=== PATIENT | female | born 1980 | race Hispanic/Latino ===

== ENCOUNTER 2018-07-06 16:34 | Emergency (ER) | payer OTHER ==
[~2018-07-06] VITALS: Ht 144.8 cm; Wt 54.4 kg
--- OUTSIDE RECORDS SUMMARY | 2018-07-06 16:37 | XMS REPORT ---
Author Author [facility] Address Unknown Phone Unavailable Care Team Providers Care Supervisor [employer] Name Role Phone Margaux SHAFER Unavailable Unavailable Problems This patient has no known problems. Allergies, Adverse Reactions, Alerts This patient has no known allergies or adverse reactions. Medications This patient has no known medications. Encounters Start Date/Time End Date/Time Encounter Type Admission Type Attending Clinicians Care Facility Care Department Encounter ID 2016-12-30 14:32:37 2016-12-30 14:32:37 Emergency [facility] [id number] Results Test Description Test Time Test Comments Text Results Atomic Results Result Comments CT ABDOMEN/PELVIS W 2018-03-12 18:56:00 [place] [address] Patient Name: BLANCA PIEDRA MR #: [id number] : 1980 Age/Sex: 37/F Req #: [id number] Adm Physician: Ordered by: KYRIE KAM NP Report #: [id number] Location: ER Room/Bed: Procedure: [id number] CT/CT ABDOMEN/PELVIS W Exam Date: Exam Time: REPORT STATUS: Signed CT Abdomen And Pelvis with Intravenous Contrast INDICATION: Rectal bleeding, lower abd pain TECHNIQUE: Thin collimation axial images obtained from the diaphragm to the level of the pubic symphysis following the uneventful administration of 100 cc of low osmolar, nonionic intravenous contrast. Dose reduction techniques used: Automated exposure control, adjustment of the mAs and/or kVp according to patient size, standardized low-dose protocol, and/or iterative reconstruction technique. RADIATION DOSE: Total DLP: 180.16 mGy*cm Estimated effective dose: (DLP x 0.015 x size factor) mSv CTDIvol has been r eviewed. It is below the limits set by the Radiation Protocol Committee (RPC). COMPARISON: None. ABDOMEN FINDINGS: Lung Bases: Clear. The visualized portions of the mediastinum are normal.. Liver: Decreased attenuation suggestive of steatosis. Lobulated low attenuating lesion in the right lobe measures 2.2 x 1.7 cm. Gallbladder: Present and contracted. No biliary ductal dilatation. Pancreas: Normal attenuation without mass or ductal dilatation. Spleen: Normal in size. No evidence of mass.. Adrenal Glands: No evidence for mass. Kidneys: Right: Normal enhancement. No soft tissue mass. No hydronephrosis. Left: Normal enhancement. No soft tissue mass. No hydronephrosis. Lymph Nodes: No enlarged abdominal or retroperitoneal lymph nodes. Aorta: Normal in diameter PELVIS FINDINGS: Bowel: Stomach: Distended with enteric contrast and appears normal. Small Bowel: Contains enteric contrast. No mural thickening or dilatation. Large Bowel: Diverticulosis of the right colon. Circumferential mural thickening and associated inflammation of at least a 12 cm segment of the descending colon. There is normal mucosal enhancement. The sigmoid colon is redundant. No significant burden of diverticulosis. Appendix: Normal appendix. Bladder: Well distended and is normal. No ureteral dilatation. The uterus is present and normal in morphology. No adnexal mass. No free fluid or fluid collection. Bones: Unremarkable for age. IMPRESSION: 1. Long segment mural thickening and inflam mation of the descending colon suggestive of colitis. 2. Diverticulosis coli without evidence of acute diverticulitis. Normal appendix. 3. No bowel obstruction. 4. Steatosis. Lobulated cyst or hemangioma in the right lobe. Signed by: Dr. Raymond Delatorre MD on 03/12/2018 7:02 PM Dictated By: RAYMOND DELATORRE MD 01 Transcribed By: MARCELO on 03/12/181901 COPY TO: KYRIE KAM NP
--- OUTSIDE RECORDS SUMMARY | 2018-07-06 16:37 | XMS REPORT ---
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 V72.31 Active Rosalia Wei MD Routine gynecological examination Ulcerative (chronic) enterocolitis per pt 556.0 Active Rosalia Wei MD Ulcerative (chronic) enterocolitis Chlamydia trachomatis 099.41 Active Rosalia Wei MD Nongonococcal urethritis [CARMEN] due to Chlamydia trachomatis BMI 25.0-25.9 Active Rosalia Wei MD Body Mass Index 25.0-25.9, adult Injectable contraceptive surveillance V25.49 Active Rosalia Wei MD Encounter for surveillance of other contraceptive method Injectable contraceptive surveillance V25.49 Active Rosalia Wei MD Encounter for surveillance of other contraceptive method Pelvic pain, right 789.09 Active Rosalia Wei MD Abdominal pain, other specified site; multiple sites Abdominal pain 789.00 Active Rosalia Wei MD Abdominal pain, unspecified site exam neg- upt neg-=if persistent Injectable contraceptive, initial prescription V25.02 Active Rosalia Wei MD Encounter for general counseling on initiation of other contraceptive measures Amenorrhea, secondary, r/o 626.0 Active Rosalia Wei MD Absence of menstruation Contraception counseling V25.09 Active Rosalia Wei MD Encounter for other general counseling and advice on contraceptive management Dysuria 788.1 Active Rosalia Wei MD Dysuria Hx of hematuria, microscopic since 2007 V13.09 Active Rosalia Wei MD Other personal history of disorders of urinary system Vaginitis and vulvovaginitis 616.10 Active Rosalia Wei MD Vaginitis and vulvovaginitis, unspecified Std screening ICD-V74.5 Inactive Rosalia Wei MD Vaginal odor ICD-623.8 Inactive Rosalia Wei MD Std screening V74.5 Resolved Rosalia Wei MD Screening examination for venereal disease Vaginal odor 623.8 Resolved Rosalia Wei MD Other specified noninflammatory disorders of vagina Medication List Medication Instructions Start Date Stop Date Generic Name NDC Status Provider Patient Instruction AZITHROMYCIN 500 MG ORAL TABLET 2 tablet By Mouth once AZITHROMYCIN 70002603603 Active Rosalia Wei MD Active METRONIDAZOLE 500 MG ORAL TABLET one tablet By Mouth Twice a Day for 7 days METRONIDAZOLE 79629707809 Tresa Wei MD Active METRONIDAZOLE 0.75 % VAGINAL GEL one applicatorful in vagina each night for 5 nights METRONIDAZOLE 25684272867 Tresa Wei MD Active PHENAZOPYRIDINE HCL 100 MG ORAL TABLET one tablet By Mouth Three Times a Day for urinary symptoms PHENAZOPYRIDINE HCL 86883827960 Tresa Wei MD Active DEPO-PROVERA 150 MG/ML INTRAMUSCULAR SUSPENSION IM q 3mo MEDROXYPROGESTERONE ACETATE 77471227436 Tresa Wei MD Active METRONIDAZOLE 0.75 % VAGINAL GEL one applicatorful in vagina for 5 nights METRONIDAZOLE 91286978594 Tresa Wei MD Active Vital Signs Date Name Value Unit Range Description blood pressure, diastolic 70 mm[Hg] BP white blood pressure, systolic 105 mm[Hg] BP sys height E&M 57 [in_us] Bdy height pulse rate E&M 63 /min Heart rate temperature E&M 98.1 [degF] Body temperature weight E&M 116 [lb_av] Weight Measured blood pressure, diastolic 71 mm[Hg] BP white blood pressure, systolic 113 mm[Hg] BP sys height E&M 57 [in_us] Bdy height pulse rate E&M 67 /min Heart rate temperature E&M 97.9 [degF] Body temperature weight E&M 119 [lb_av] Weight Measured blood pressure, diastolic 65 mm[Hg] BP white blood pressure, systolic 99 mm[Hg] BP sys height E&M 57 [in_us] Bdy height pulse rate E&M 76 /min Heart rate temperature E&M 98.5 [degF] Body temperature weight E&M 116 [lb_av] Weight Measured blood pressure, diastolic 69 mm[Hg] BP white blood pressure, systolic 102 mm[Hg] BP sys height E&M 57 [in_us] Bdy height pulse rate E&M 76 /min Heart rate temperature E&M 98.6 [degF] Body temperature weight E&M 113.13 [lb_av] Weight Measured blood pressure, diastolic 78 mm[Hg] BP white blood pressure, systolic 118 mm[Hg] BP sys height E&M 57 [in_us] Bdy height pulse rate E&M 78 /min Heart rate temperature E&M 98.5 [degF] Body temperature weight E&M 114 [lb_av] Weight Measured Diagnostic Results Date Name Value Unit Range Description Lab Report: CBC With Differential/Platelet, Comp. Metabolic Panel (14), ... - Chemistry thyroid stimulating hormone, serum 1.020 u[iU]/mL 0.450-4.500 Office Visit: Depo provera fup/STD test - Chemistry beta HCG, urine, semiquantitative negative Lab Report: CBC With Differential/Platelet, Comp. Metabolic Panel (14), ... - Chemistry very low density lipoproteins 21 mg/dL 5-40 hepatitis B surface antigen Negative Negative chloride, serum 104 mmol/L 96-106 urea nitrogen, blood 15 mg/dL 6-20 Office Visit: depo provera fup/ pelvic pain. dysuria/ hematuria - Urinalysis leukocyte esterase, urine, by dipstick negative Lab Report: CBC With Differential/Platelet, Comp. Metabolic Panel (14), ... - Hematology mean corpuscular hemoglobin concentration, RBC 33.4 G/DL % 31.5-35.7 erythrocyte (RBC) count 4.35 X10E6/UL 10*6/mm3 3.77-5.28 Office Visit: depo provera fup/ pelvic pain. dysuria/ hematuria - Urinalysis nitrite, urine, semiquantitative negative Lab Report: CBC With Differential/Platelet, Comp. Metabolic Panel (14), ... - Serology hepatitis C antibody, serum <0.1 0.0-0.9 Office Visit: depo provera fup/ pelvic pain. dysuria/ hematuria - Urinalysis urine color yellow Lab Report: CBC With Differential/Platelet, Comp. Metabolic Panel (14), ... - Chemistry Absolute Neutrophils 3.1 X10E3/UL 10*3/uL 1.4-7.0 Office Visit: depo provera fup/ pelvic pain. dysuria/ hematuria - Urinalysis bilirubin, urine negative Lab Report: CBC With Differential/Platelet, Comp. Metabolic Panel (14), ... - Chemistry LDL cholesterol, serum 92 mg/dL 0-99 urea nitrogen/creatinine ratio, serum 22 9-23 Lab Report: CBC With Differential/Platelet, Comp. Metabolic Panel (14), ... - Hematology mean corpuscular volume, RBC 92 fL 79-97 Lab Report: CBC With Differential/Platelet, Comp. Metabolic Panel (14), ... - Chemistry HDL cholesterol, serum 68 mg/dL >39 Lab Report: CBC With Differential/Platelet, Comp. Metabolic Panel (14), ... - Hematology monocytes as percent of blood leukocytes 9 % Not Estab. Lab Report: CBC With Differential/Platelet, Comp. Metabolic Panel (14), ... - Chemistry albumin/globulin ratio, serum 1.7 1.2-2.2 creatinine, serum 0.67 mg/dL 0.57-1.00 Lab Report: Vaginitis/Vaginosis, DNA Probe - Urinalysis trichomonas vaginalis, urine Negative Negative Lab Report: CBC With Differential/Platelet, Comp. Metabolic Panel (14), ... - Chemistry cholesterol, serum 181 mg/dL 518-716 7390/02/20 bilirubin, serum, total 0.8 mg/dL 0.0-1.2 Lab Report: CBC With Differential/Platelet, Comp. Metabolic Panel (14), ... - Hematology Eosinophil Absolute Count 0.0 X10E3/UL 10*3/uL 0.0-0.4 Lab Report: Ct, Ng, Trich vag by ALEJO - Lab chlamydia DNA probe Negative Negative Office Visit: depo provera fup/ pelvic pain. dysuria/ hematuria - Urinalysis appearance, urine clear blood in urine (hemoglobin) by dipstick 3+ Lab Report: CBC With Differential/Platelet, Comp. Metabolic Panel (14), ... - Chemistry aspartate aminotransferase (SGOT), serum 16 U/L 0-40 Lab Report: CBC With Differential/Platelet, Comp. Metabolic Panel (14), ... - Hematology red blood cell distribution width 12.6 % 12.3-15.4 leukocyte count, blood 4.6 X10E3/UL 10*3/mm3 3.4-10.8 Lab Report: CBC With Differential/Platelet, Comp. Metabolic Panel (14), ... - Chemistry potassium, serum 4.2 mmol/L 3.5-5.2 albumin, serum 4.5 g/dL 3.5-5.5 immature granulocytes, percentage of total cells, blood 0 % Not Estab. Lab Report: CBC With Differential/Platelet, Comp. Metabolic Panel (14), ... - Hematology lymphocyte count, blood, automated 1.1 X10E3/UL 10*3/mm3 0.7-3.1 Lab Report: Ct, Ng, Trich vag by ALEJO - Microbiology Neisseria gonorrhoeae DNA probe Negative Negative Lab Report: CBC With Differential/Platelet, Comp. Metabolic Panel (14), ... - Hematology hematocrit, blood 40.1 % 34.0-46.6 Lab Report: Urine Culture, Routine, Result - Urinalysis urine culture No growth Lab Report: CBC With Differential/Platelet, Comp. Metabolic Panel (14), ... - Chemistry sodium, serum 143 mmol/L 134-144 Lab Report: CBC With Differential/Platelet, Comp. Metabolic Panel (14), ... - Hematology neutrophils as percent of blood leukocytes 68 % Not Estab. basophils as percent of blood leukocytes 0 % Not Estab. Office Visit: depo provera fup/ pelvic pain. dysuria/ hematuria - Urinalysis protein, urine, semiquantitative (dipstick) negative Lab Report: CBC With Differential/Platelet, Comp. Metabolic Panel (14), ... - Serology rapid plasma reagin antibody, serum Non Reactive Non Reactive Lab Report: CBC With Differential/Platelet, Comp. Metabolic Panel (14), ... - Chemistry carbon dioxide, venous blood 24 mmol/L 20-29 triglyceride, serum, fasting 103 mg/dL 0-149 calcium, serum 9.5 mg/dL 8.7-10.2 alanine aminotransferase (SGPT), serum 32 U/L 0-32 Lab Report: CBC With Differential/Platelet, Comp. Metabolic Panel (14), ... - Hematology mean corpuscular hemoglobin, RBC 30.8 pg 26.6-33.0 Lab Report: CBC With Differential/Platelet, Comp. Metabolic Panel (14), ... - Chemistry protein, total, serum 7.2 g/dL 6.0-8.5 alkaline phosphatase, serum 70 U/L 39-117 Lab Report: CBC With Differential/Platelet, Comp. Metabolic Panel (14), ... - Hematology hemoglobin, blood 13.4 g/dL 11.1-15.9 lymphocytes as percent of blood leukocytes 23 % Not Estab. Lab Report: CBC With Differential/Platelet, Comp. Metabolic Panel (14), ... - Chemistry hemoglobin A1C, blood, as % of total hemoglobin 5.5 % 4.8-5.6 Office Visit: depo provera fup/ pelvic pain. dysuria/ hematuria - Urinalysis glucose, urine, semiquantitative negative Lab Report: CBC With Differential/Platelet, Comp. Metabolic Panel (14), ... - Genetics/fertility eGFR if 129 mL/min/1.73m2 >59 Lab Report: CBC With Differential/Platelet, Comp. Metabolic Panel (14), ... - Hematology basophil count, absolute 0.0 x10E3/uL 0.0-0.2 Lab Report: CBC With Differential/Platelet, Comp. Metabolic Panel (14), ... - Chemistry globulin, serum 2.7 1.5-4.5 Estimated Glomerular Filtration Rate (calc) 112 mL/min/1.73m2 >59 Lab Report: CBC With Differential/Platelet, Comp. Metabolic Panel (14), ... - Hematology eosinophils as percent of blood leukocytes 0 % Not Estab. Lab Report: CBC With Differential/Platelet, Comp. Metabolic Panel (14), ... - Chemistry blood glucose, random 103 mg/dL 65-99 Office Visit: depo provera fup/ pelvic pain. dysuria/ hematuria - Urinalysis urobilinogen, urine, semiquantitative (dipstick) negative Lab Report: CBC With Differential/Platelet, Comp. Metabolic Panel (14), ... - Hematology monocyte count, blood, automated 0.4 X10E3/UL 10*3/uL 0.1-0.9 platelet count 456 X10E3/UL 10*3/mm3 150-379 Office Visit: depo provera fup/ pelvic pain. dysuria/ hematuria - Urinalysis ketones, urine, by test strip negative Encounters Date Encounter Provider Code Facility 14:02:08 PROCUREMENT DIRECTOR Est Patient Exp Problem - 08207 Rosalia Wei MD CPT-70101 [facility] [employer] 15:10:58 CDT Est Patient Exp Problem - 82294 Rosalia Wei MD CPT-55655 [facility] [employer] 15:46:41 CDT Est Patient Exp Problem - 05195 Rosalia Wei MD CPT-91349 [facility] [employer] 14:51:26 CDT New Patient Comprehensive - 70968 Rosalia Wei MD CPT-03904 [facility] [employer] Procedures Code Procedure Name Date Entry Date Standard Description CPT-88603 IM or SQ Injection 13:14:41 PROCUREMENT DIRECTOR CPT-J1050 Injection, medroxyprogesterone acetate (Depo), 150 mg 13:14:41 PROCUREMENT DIRECTOR CPT-54562 Est Patient Well Exam (18 - 39 Yrs) - 79285 11:14:47 PROCUREMENT DIRECTOR CPT-92162 IM or SQ Injection 15:29:29 PROCUREMENT DIRECTOR CPT-J1050 Injection, medroxyprogesterone acetate (Depo), 150 mg 15:29:29 PROCUREMENT DIRECTOR CPT-08314 IM or SQ Injection 15:24:11 CDT CPT-J1050 Injection, medroxyprogesterone acetate (Depo), 150 mg 15:24:10 CDT CPT-21740 Urinalysis - - In House 15:11:02 CDT CPT-56325 IM or SQ Injection 16:08:01 CDT CPT-J1050 Injection, medroxyprogesterone acetate (Depo), 150 mg 16:08:00 CDT CPT-07831 Urinalysis - - In House 15:46:43 CDT CPT-31127 Urinalysis - - In House 14:51:28 CDT CPT-90369 Urinalysis - Dip only - In House 14:51:28 CDT
== END 2018-07-06 16:50 | disposition short-term general hospital (02) ==
LOC: ER 16:34
DX: Z53.21 Procedure and treatment not carried out due to patient leaving prior to being seen by health care provider (principal); T23.101A Burn of first degree of right hand, unspecified site, initial encounter